=== PATIENT | female | born 1995 | race Caucasian/White ===

== ENCOUNTER → 2019-01-05 | Outpatient (CLI) | payer OTHER ==
[~2019-01-05] MED LIST: CEPH500T7 PO; CYCL10TA29 PO; LOR5/325 PO; TRAM-420 PO; TRAM-627 PO; TRAZ50TA34 PO; VENL150C61 PO
--- NOTE | 2019-01-07 16:10 | RT HOLTER TEST ---
[place] [facility] [place] NAME: MK CRAMER : [id number] MR: [id number] V: [id number] EXAM DATE: ORDERING PHYSICIAN: JESSIKA GLOVER TECHNOLOGIST: Erik Hook-up date: 2019-01-05 14:22:00 Duration: 45:38:00 Test Indications: CHEST PAIN Medications: NONE [id number] QRS complexes 2 Ventricular ectopics which represent <1 % of total QRS comp. 2 Supraventricular ectopics which represent <1 % of total QRS comp. * Paced QRS complexes which represent % of total QRS comp. VENTRICULAR ECTOPY 2 Isolated 0 Bigeminal Cycles 0 Couplets 0 Runs 0 Beats in Runs * Beats LONGEST at * BPM at :: -- * Beats FASTEST at * BPM at :: -- SUPRAVENTRICULAR ECTOPY 2 Isolated 0 Couplets 0 Runs 0 Beats in Runs * Beats LONGEST at * BPM at :: -- * Beats FASTEST at * BPM at :: -- HEART RATES 52 MIN at 07:48:36 2019-01-06 90 AVG 145 MAX at 13:23:37 2019-01-06 LONGEST RR 1.216 secs at 07:48:30 2019-01-06 S-T LEVELS Channel 1 -12.800 mm MIN at 14:22:00 2019-01-05 -12.800 mm MAX at 14:22:00 2019-01-05 Channel 2 -12.800 mm MIN at 14:22:00 2019-01-05 -12.800 mm MAX at 14:22:00 2019-01-05 Channel 3 -12.800 mm MIN at 14:22:00 2019-01-05 -12.800 mm MAX at 14:22:00 2019-01-05 Maximum heart rate was sinus tachycardia at 145 beats per minute (BPM). Minimum heart rate was sinus bracycardia at 52 BPM. Diary entries were associated with normal sinus rhythm at times with flattening of the T wave in lead II. Review of the sample strips showed intermittent T wave inversion in leads II and III with no associated ST segment changes. There were 2 isolated PVCs and 2 isolated PACs. Confirmed by STELLA HOWELL ([id number]) on 01/07/2019 4:09:45 PM Referred By: Overread By: STELLA HOWELL
== END ==
LOC: RESP 02:12
PROVIDERS: ATTEND Family Medicine
DX: R07.2 Precordial pain (principal)
CPT/HCPCS: 93225; 93226

== ENCOUNTER → 2019-01-19 | Outpatient (CLI) | payer OTHER ==
[~2019-01-19] MED LIST changes: +IOPAMIDOL 76% 75 ML INFUS BTL 75 ML ONE; +NS(*) 0.9% 50 ML BAG 50 ML ONE
--- NOTE | 2019-01-19 16:00 | RADIOLOGY IMAGING REPORT ---
FACILITY: [facility] PATIENT NAME: Chantal Adrian : 1995 MR: [id number] V: [id number] EXAM DATE: ORDERING PHYSICIAN: LAURA ANDRADE TECHNOLOGIST: Location: [facility] Patient: Chantal Adrian : 1995 Visit/Account:[id number] Date of Sevice: 01/19/2019 CT CTA CHEST W & W/O CON HISTORY: Chest discomfort ADDITIONAL HISTORY: None. TECHNIQUE: CTA chest with intravenous contrast. Axial imaging acquired following administration of IV contrast timed for maximum opacification of the pulmonary arterial vasculature. Slab 3-D MIP perry nstructed images were also created for further evaluation and interpretation. Reconstruction of the [facility] data set includes multiplanar 2-D in the sagittal and coronal planes and 3-D reconstructed samson nal slab MIP series. 3-D images were created by the technologist.Dose Lowering Technique One of the following dose optimization techniques was utilized in the performance of this exam: Autom ated exposure control; adjustment of the mA and/or kV according to the patient's size; or use of an i terative reconstruction technique. Specific details can be referenced in the facility's radiology C T exam operational policy. CONTRAST: 75 mL Isovue-370 COMPARISON: None. FINDINGS: Lungs/pleura: Negative. Heart/vessels: Negative. There are no filling defects seen in the pulmonary arteries worrisome for a pulmonary embolus. Mediastinum/lymph nodes: Negative. Visualized upper abdomen: There several lymph nodes adjacent to the GE junction. The largest measur ing 1.2 x 0.9 cm Bones/soft tissues: Negative. Additional findings: None IMPRESSION: Unremarkable CT of the chest other than incidental lymph nodes adjacent to the GE junction as describ ed above. These could be reactive. Clinical correlation needed Report Dictated By: Hillary Castro MD at 01/19/2019 3:31 PM Report E-Signed By: Hillary Castro MD at 01/19/2019 3:56 PM WSN:[id number]
== END ==
LOC: CT 14:30
PROVIDERS: ATTEND Internal Medicine
DX: R07.89 Other chest pain (principal)
CPT/HCPCS: 71275; J7050; Q9967

== ENCOUNTER 2019-03-28 21:03 | Emergency (ER) | payer OTHER ==
[~2019-03-28 21:03] MED LIST changes: -IOPAMIDOL 76% 75 ML INFUS BTL 75 ML ONE; -NS(*) 0.9% 50 ML BAG 50 ML ONE
--- NOTE | 2019-03-28 21:28 | ER Report ---
History and Physical Time Seen By MD: 21:28 HPI/ROS CHIEF COMPLAINT: Blood in urine HISTORY OF PRESENT ILLNESS: This is a 23-year-old female. She started having some right-sided flank pain around 1330 hrs. today. She did note a little burning with urination. Then tonight she started having some bright red blood in the urine and even noted some clots. She is having a little bit of lower abdominal pain as well. Denies any fevers or chills. No history of prior hematuria. No other bleeding. Bowels a been normal. Last period a few weeks ago and was normal. No aspirin or blood thinners. Allergies: Coded Allergies: Penicillins (Unverified Allergy, Unknown, UNKNOWN, 03/28/19) Sulfa (Sulfonamide Antibiotics) (Unverified Allergy, Unknown, UNKNOWN, 03/28/19) Home Meds Active Scripts Levofloxacin 500 Mg Tab (LEVAQUIN 500 MG TAB) 500 Mg Tablet, 500 MG PO DAILY, #5 TAB 0 Refills Prov:TAY LOZANO MD 03/29/19 Reported Medications Venlafaxine Hcl (EFFEXOR XR) 75 Mg Cap.er.24h, 225 MG PO QDAY 03/28/19 Norgestimate-Ethinyl Estradiol (SPRINTEC) 1 Each Tablet, 1 EACH PO QDAY 03/28/19 Discontinued Reported Medications Venlafaxine Hcl (EFFEXOR XR) 150 Mg Cap.er.24h, 150 MG PO QDAY 10/31/16 Trazodone Hcl (TRAZODONE HCL) 50 Mg Tablet, 50 MG PO QHS 10/31/16 Discontinued Scripts Cyclobenzaprine Hcl (CYCLOBENZAPRINE HCL) 10 Mg Tablet, 10 MG PO TID, #20 TAB TAKE 1 TABLET BY MOUTH THREE TIMES A DAY Prov:CARMELA DING DO 10/31/16 Reviewed Nurses Notes: Yes Hx Smoking: No Smoking Status: Never Smoker Exposure to Second Hand Smoke?: No Hx Substance Use Disorder: No Hx Alcohol Use: No Constitutional Vital Sign - Last 24 Hours 03/28/19 03/28/19 03/28/19 03/28/19 21:24 21:33 21:48 22:00 Temp 97.9 Pulse 93 93 101 Resp 16 B/P (MAP) 133/82 121/91 (101) Pulse Ox 95 95 90 O2 Delivery Room Air 03/28/19 03/28/19 03/28/19 03/28/19 22:03 22:18 22:30 22:33 Pulse ??? 93 91 B/P (MAP) 109/70 (83) Pulse Ox 93 94 93 03/28/19 03/28/19 03/28/19 03/28/19 22:48 22:53 23:00 23:09 Pulse 94 88 B/P (MAP) ???/??? (1665) 125/86 (99) Pulse Ox 94 94 03/28/19 03/28/19 03/28/19 03/29/19 23:30 23:38 23:53 00:00 Pulse 87 87 B/P (MAP) 113/81 (92) 116/73 (87) Pulse Ox 93 93 03/29/19 03/29/19 03/29/19 03/29/19 00:08 00:23 00:30 00:38 Pulse 90 93 ??? B/P (MAP) 115/80 (92) Pulse Ox 93 92 92 03/29/19 03/29/19 03/29/19 03/29/19 00:43 00:58 01:00 01:13 Pulse ??? 106 92 B/P (MAP) 114/84 (94) Pulse Ox 93 89 90 03/29/19 03/29/19 03/29/19 03/29/19 01:28 01:30 01:43 01:58 Pulse 92 ??? 95 B/P (MAP) 113/76 (88) Pulse Ox 90 86 89 03/29/19 02:00 B/P (MAP) 124/71 (88) Physical Exam General Appearance: The patient is alert. No acute distress. Non-toxic in appearance. Eyes: Pupils are equal, round. No pallor, injection or icterus. ENT: Mucous membranes are moist. Respiratory: Lungs are clear to auscultation. Cardiovascular: Regular rate and rhythm. No murmurs, gallops or rubs. Normal capillary refill. Gastrointestinal: Abdomen is soft, there is a little bit of suprapubic discomfort. Nondistended. No rebound or guarding. Normal active bowel sounds. Has some pain in the low back and in the flank on the right side. Neurological: Alert and oriented x3. No focal neurologic deficits Skin: Warm and dry. No rashes. Musculoskeletal: Extremities are nontender. No tenderness in palpation of the thoracic and lumbar spine. DIFFERENTIAL DIAGNOSIS: After history and physical exam, differential diagnosis was considered for flank pain with gross hematuria and abdominal pain with some dysuria, most likely can be urinary tract infection but with the gross hematuria would also consider other causes of this and the urinary tract. Medical Decision Making Data Points Result Diagram: 03/28/19 2215 03/28/19 2215 Laboratory Hematology Test 03/28/19 02:06 03/28/19 22:15 Urine Color Yellow Urine Clarity Slightly-cloudy Urine pH 6.0 pH (4.8-9.5) Urine Specific [place] 1.008 Urine Protein 30 mg/dL (NEGATIVE) Urine Glucose (UA) Negative mg/dL (NEGATIVE) Urine Ketones Negative mg/dL (NEGATIVE) Urine Blood Large (NEGATIVE) Urine Nitrite Negative (NEGATIVE) Urine Bilirubin Negative (NEGATIVE) Urine Urobilinogen Negative mg/dL (0.2-1.9) Urine Leukocyte Esterase Moderate (NEGATIVE) Urine RBC 5670 /HPF (0-2/HPF) Urine WBC 2488 /HPF (0-5/HPF) Urine WBC Clumps Many /HPF Urine Squamous Epithelial Cells Many /LPF (</=FEW) Urine Bacteria Negative /HPF (NONE-FEW) Urine Mucus None /HPF (NONE-FEW) Red Blood Count 5.03 M/uL (4.17-5.56) Mean Corpuscular Volume 86.5 fL (80.0-96.0) Mean Corpuscular Hemoglobin 28.9 pg (26.0-33.0) Mean Corpuscular Hemoglobin Concent 33.4 g/dL (32.0-36.0) Red Cell Distribution Width 13.4 % (11.5-14.5) Mean Platelet Volume 7.3 fL (7.2-11.1) Neutrophils (%) (Auto) 71.2 % (39.4-72.5) Lymphocytes (%) (Auto) 21.9 % (17.6-49.6) Monocytes (%) (Auto) 6.4 % (4.1-12.4) Eosinophils (%) (Auto) 0.1 % (0.4-6.7) Basophils (%) (Auto) 0.4 % (0.3-1.4) Nucleated RBC Relative Count (auto) 0.0 /100WBC Neutrophils # (Auto) 6.0 K/uL (2.0-7.4) Lymphocytes # (Auto) 1.8 K/uL (1.3-3.6) Monocytes # (Auto) 0.5 K/uL (0.3-1.0) Eosinophils # (Auto) 0.0 K/uL (0.0-0.5) Basophils # (Auto) 0.0 K/uL (0.0-0.1) Nucleated RBC Absolute Count (auto) 0.00 K/uL Prothrombin Time 12.6 seconds (12.0-14.4) Prothromb Time International Ratio 0.94 Activated Partial Thromboplast Time 30 seconds (23-35) Sodium Level 139 mmol/L (137-145) Potassium Level 4.2 mmol/L (3.5-5.0) Chloride Level 103 mmol/L (98-107) Carbon Dioxide Level 26 mmol/L (22-31) Blood Urea Nitrogen 11 mg/dl (7-18) Creatinine 0.60 mg/dl (0.52-1.04) Glomerular Filtration Rate Calc > 60.0 Random Glucose 90 mg/dl (75-110) Calcium Level 8.9 mg/dl (8.4-10.2) Total Bilirubin 0.5 mg/dl (0.2-1.3) Aspartate Amino Transf (AST/SGOT) 25 U/L (0-35) Alanine Aminotransferase (ALT/SGPT) 34 U/L (0-56) Alkaline Phosphatase 72 U/L (0-126) Total Protein 8.0 g/dl (6.3-8.2) Albumin 4.6 g/dl (3.5-5.0) Human Chorionic Gonadotropin, Qual Negative (NEGATIVE) Chemistry Test 03/28/19 02:06 03/28/19 22:15 Urine Color Yellow Urine Clarity Slightly-cloudy Urine pH 6.0 pH (4.8-9.5) Urine Specific [place] 1.008 Urine Protein 30 mg/dL (NEGATIVE) Urine Glucose (UA) Negative mg/dL (NEGATIVE) Urine Ketones Negative mg/dL (NEGATIVE) Urine Blood Large (NEGATIVE) Urine Nitrite Negative (NEGATIVE) Urine Bilirubin Negative (NEGATIVE) Urine Urobilinogen Negative mg/dL (0.2-1.9) Urine Leukocyte Esterase Moderate (NEGATIVE) Urine RBC 5670 /HPF (0-2/HPF) Urine WBC 2488 /HPF (0-5/HPF) Urine WBC Clumps Many /HPF Urine Squamous Epithelial Cells Many /LPF (</=FEW) Urine Bacteria Negative /HPF (NONE-FEW) Urine Mucus None /HPF (NONE-FEW) White Blood Count 8.4 k/uL (4.5-11.0) Red Blood Count 5.03 M/uL (4.17-5.56) Hemoglobin 14.5 g/dL (12.0-16.0) Hematocrit 43.5 % (34.0-47.0) Mean Corpuscular Volume 86.5 fL (80.0-96.0) Mean Corpuscular Hemoglobin 28.9 pg (26.0-33.0) Mean Corpuscular Hemoglobin Concent 33.4 g/dL (32.0-36.0) Red Cell Distribution Width 13.4 % (11.5-14.5) Platelet Count 352 K/uL (150-450) Mean Platelet Volume 7.3 fL (7.2-11.1) Neutrophils (%) (Auto) 71.2 % (39.4-72.5) Lymphocytes (%) (Auto) 21.9 % (17.6-49.6) Monocytes (%) (Auto) 6.4 % (4.1-12.4) Eosinophils (%) (Auto) 0.1 % (0.4-6.7) Basophils (%) (Auto) 0.4 % (0.3-1.4) Nucleated RBC Relative Count (auto) 0.0 /100WBC Neutrophils # (Auto) 6.0 K/uL (2.0-7.4) Lymphocytes # (Auto) 1.8 K/uL (1.3-3.6) Monocytes # (Auto) 0.5 K/uL (0.3-1.0) Eosinophils # (Auto) 0.0 K/uL (0.0-0.5) Basophils # (Auto) 0.0 K/uL (0.0-0.1) Nucleated RBC Absolute Count (auto) 0.00 K/uL Prothrombin Time 12.6 seconds (12.0-14.4) Prothromb Time International Ratio 0.94 Activated Partial Thromboplast Time 30 seconds (23-35) Glomerular Filtration Rate Calc > 60.0 Calcium Level 8.9 mg/dl (8.4-10.2) Total Bilirubin 0.5 mg/dl (0.2-1.3) Aspartate Amino Transf (AST/SGOT) 25 U/L (0-35) Alanine Aminotransferase (ALT/SGPT) 34 U/L (0-56) Alkaline Phosphatase 72 U/L (0-126) Total Protein 8.0 g/dl (6.3-8.2) Albumin 4.6 g/dl (3.5-5.0) Human Chorionic Gonadotropin, Qual Negative (NEGATIVE) Coagulation Test 03/28/19 22:15 Prothrombin Time 12.6 seconds Prothromb Time International Ratio 0.94 Activated Partial Thromboplast Time 30 seconds Urinalysis Test 03/28/19 02:06 Urine Color Yellow Urine Clarity Slightly-cloudy Urine pH 6.0 pH (4.8-9.5) Urine Specific [place] 1.008 Urine Protein 30 mg/dL (NEGATIVE) Urine Glucose (UA) Negative mg/dL (NEGATIVE) Urine Ketones Negative mg/dL (NEGATIVE) Urine Blood Large (NEGATIVE) Urine Nitrite Negative (NEGATIVE) Urine Bilirubin Negative (NEGATIVE) Urine Urobilinogen Negative mg/dL (0.2-1.9) Urine Leukocyte Esterase Moderate (NEGATIVE) Urine RBC 5670 /HPF (0-2/HPF) Urine WBC 2488 /HPF (0-5/HPF) Urine WBC Clumps Many /HPF Urine Squamous Epithelial Cells Many /LPF (</=FEW) Urine Bacteria Negative /HPF (NONE-FEW) Urine Mucus None /HPF (NONE-FEW) EKG/Imaging Imaging COMPUTED TOMOGRAPHY ABDOMEN AND PELVIS WITHOUT INTRAVENOUS CONTRAST DATE OF EXAM: 03/28/2019 9:50 PM INDICATION: Right back and lower abdominal pain, gross hematuria. COMPARISON: CTA chest 01/19/2019. TECHNIQUE: Noncontrast abdomen and pelvis CT performed. Sagittal and coronal reconstructions were performed. One of the following dose optimization techniques was utilized in the performance of this exam: Automated exposure control; adjustment of the mA and/or kV according to the patient's size; or use of an iterative reconstruction technique. Specific details can be referenced in the facility's radiology CT exam operational policy. FINDINGS: Lung bases: Clear. Liver: Normal. Gallbladder and bile ducts: Normal. Spleen: Normal. Pancreas: Normal. Adrenals: Normal. Kidneys, ureters and bladder: Normal. Retroperitoneum and aorta: Normal. GI tract, mesentery and peritoneum: Nonacute. Normal appendix. Uterus and adnexa: Unremarkable. Bones and soft tissues: No acute abnormality or suspicious lesion. IMPRESSION: No definite acute abnormality. Report Dictated By: Otoniel Perez MD at 03/28/2019 11:16 PM ED Course/Re-evaluation Clinical Indication for ER IV: Hydration, IV Access ED Course Labs obtained and these are unremarkable. CT scan shows no acute abnormality as noted above. Patient still unable to give a urine sample. Started a liter of normal saline. Discussed with the patient and she is still unable to urinate. Discussed options including catheterization, continued fluids and waiting, however she would like to return home and try and collect a urine sample at home. I explained to them that based on the results of the urine sample would depend on further treatment so if they can bring that in the soonest possible we could decide what to do at this time. Also recommended follow-up with urology for further evaluation given the gross hematuria earlier today. Decision to Disposition Date: March 29, 2019 Decision to Disposition Time: 01:53 Depart Departure Latest Vital Signs Vital Signs Date Time Temp Pulse Resp B/P (MAP) Pulse Ox O2 Delivery O2 Flow Rate FiO2 03/29/19 02:00 124/71 (88) 03/29/19 01:58 95 89 03/28/19 21:24 97.9 16 Room Air Comment Patient was discharged home. A little while later they did bring any urine sample. This did show gross hematuria and a culture is ordered. We will start the patient on Levaquin 500 milligrams once a day for 5 days as she is allergic to sulfa and penicillin. 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 We still need a urine sample to evaluate for urinary tract infection. Please bring this back in when able and we can evaluate further. If needed, once the urine sample is evaluated, we can start antibiotics if indicated. We would recommend follow-up with a urologist for further evaluation for anyone who has episodes of blood in the urine like this. See information provided for Dr. Jeff Marks, Urology. Call his office to make a follow-up appointment. TAY LOZANO MD March 28, 2019 21:28
[2019-03-28] MEDS ORDERED: VENL75CA58 PO (21:35)
[2019-03-28] MEDS ORDERED: NORG1TAB74 PO (21:35)
[2019-03-28] MEDS ORDERED: ONDANSETRON 4 MG/2 ML VIAL IVP ONE (21:50)
[2019-03-28] MEDS ORDERED: MORPHINE 2 MG/ML SYR IVP ONE (21:50)
[2019-03-28 22:30] LABS: PLATELET COUNT, AUTOMATED 352 K/uL (150-450)
[2019-03-28 22:41] LABS: INR 0.94
--- NOTE | 2019-03-28 23:29 | RADIOLOGY IMAGING REPORT ---
FACILITY: [facility] PATIENT NAME: Chantal Adrian : 1995 MR: [id number] V: [id number] EXAM DATE: ORDERING PHYSICIAN: TAY LOZANO TECHNOLOGIST: Location: [facility] - [place] Patient: Chantal Adrian : 1995 Visit/Account:[id number] Date of Sevice: 03/28/2019 COMPUTED TOMOGRAPHY ABDOMEN AND PELVIS WITHOUT INTRAVENOUS CONTRAST DATE OF EXAM: 03/28/2019 9:50 PM INDICATION: Right back and lower abdominal pain, gross hematuria. COMPARISON: CTA chest 01/19/2019. TECHNIQUE: Noncontrast abdomen and pelvis CT performed. Sagittal and coronal reconstructions were pe rformed. One of the following dose optimization techniques was utilized in the performance of this e xam: Automated exposure control; adjustment of the mA and/or kV according to the patient's size; or u se of an iterative reconstruction technique. Specific details can be referenced in the facility's r adiology CT exam operational policy. FINDINGS: Lung bases: Clear. Liver: Normal. Gallbladder and bile ducts: Normal. Spleen: Normal. Pancreas: Normal. Adrenals: Normal. Kidneys, ureters and bladder: Normal. Retroperitoneum and aorta: Normal. GI tract, mesentery and peritoneum: Nonacute. Normal appendix. Uterus and adnexa: Unremarkable. Bones and soft tissues: No acute abnormality or suspicious lesion. IMPRESSION: No definite acute abnormality. Report Dictated By: Otoniel Perez MD at 03/28/2019 11:16 PM Report E-Signed By: Otoniel Perez MD at 03/28/2019 11:24 PM WSN:[id number]
[2019-03-29] MEDS ORDERED: NS(*) 0.9% 1000 ML BAG 1,000 ML IV ONE (01:10)
[2019-03-29 02:00] VITALS: BP 124/71
[2019-03-29] MEDS ORDERED: LEVO-85 PO (05:55)
== END 2019-03-29 02:07 | disposition home or self-care (01) ==
LOC: ER 21:37
DX: R31.0 Gross hematuria (principal)
CPT/HCPCS: 74176; 81001; 84703; 85025; 85610; 85730; 87077; 87088; 87186; 96361; 96374; 96375; 99284; J2270; J2405; J7030; 82040; 82247; 82310; 82374; 82435; 82565; 82947; 84075; 84132; 84155; 84295; 84450; 84460; 84520

== ENCOUNTER → 2019-04-11 | Outpatient (REF) | payer OTHER ==
[~2019-04-11] MED LIST changes: +LEVO-85 PO; +NORG1TAB74 PO; +VENL75CA58 PO
== END ==
LOC: ZZSENDIN 13:17
PROVIDERS: ATTEND Physician Assistant
DX: R31.0 Gross hematuria (principal); M25.50 Pain in unspecified joint
CPT/HCPCS: 81001; 85651